=== PATIENT | male | born 1940 | race Caucasian/White ===

== ENCOUNTER 2023-01-19 08:10 | Day surgery (SDC) | payer MEDICARE, OTHER ==
[~2023-01-19] VITALS: Ht 160 cm; Wt 72.4 kg
[~2023-01-19 08:10] MED LIST: ASPI81TA26 PO; ATEN25TA PO; BIMA01SOL OS; BSS IRRIG/VANCO(10MG)/TOBRA(5MG)/EPINEPH(1:1000-0.5CC)500ML BAG-ORONLY IR ONE; CEFUROXIME 1MG/0.1ML INTRACAMERAL INJ As Ordered ONE; CLOP75TA2 PO; D 1010004 PO; DORZ2SOL5 OU; FOLI0.4T5 PO; LIDOCAINE 1% SDV 5ML VIAL As Ordered ONE; LIDOCAINE 3.5 % 1ML OPHTH TOPICAL GEL OU ONE; LOPI600T PO; NITR0.4S14 SL; OFLOXACIN 0.3 % (OCUFLOX) OPTH SOL 5ML OS ONE; OMEG12003 PO; PENT400T47 PO; PHENYLEPHRINE 10% OPHTH SOL 5ML OS PRN; POTA10CA60 PO; REFR0.5D8 OU; SIMV40TA20 PO; TIOT18INH INH; VITMTA PO
[2023-01-19] MEDS ORDERED: MIDAZOLAM INJ 2MG/2ML VIAL As Ordered ONE (08:34)
[2023-01-19] MEDS ORDERED: fentaNYL 100 MCG/2 ML INJECTION As Ordered ONE (08:35)
[2023-01-19] MEDS: PHENYLEPHRINE 2.5% OPHTH SOL 2ML OS SCH ×2 (08:44→08:45)
[2023-01-19] MEDS: TROPICAMIDE 1% OPHTH SOLN 15ML OS SCH ×2 (08:44→08:45)
[2023-01-19] MEDS: CYCLOPENTOLATE 1% OPHTH SOLN 2ML BTL OS SCH ×2 (08:44→08:45)
[2023-01-19 09:55] VITALS: BP 136/63; TEMP 96.9; O2SAT 98
== END 2023-01-19 16:26 | disposition home or self-care (01) ==
LOC: M SDC 08:10
PROVIDERS: ATTEND Ophthalmology
DX: H25.12 Age-related nuclear cataract, left eye (principal); H57.03 Miosis; H40.9 Unspecified glaucoma; Z95.5 Presence of coronary angioplasty implant and graft; I25.2 Old myocardial infarction; Z87.891 Personal history of nicotine dependence; Z79.899 Other long term (current) drug therapy
CPT/HCPCS: 66982; C1783; J0697; J2250; J3010; V2632

== ENCOUNTER → 2024-07-04 | Outpatient (REF) | payer MEDICARE, OTHER ==
[~2024-07-04] MED LIST changes: -BSS IRRIG/VANCO(10MG)/TOBRA(5MG)/EPINEPH(1:1000-0.5CC)500ML BAG-ORONLY IR ONE; -CEFUROXIME 1MG/0.1ML INTRACAMERAL INJ As Ordered ONE; -LIDOCAINE 1% SDV 5ML VIAL As Ordered ONE; -LIDOCAINE 3.5 % 1ML OPHTH TOPICAL GEL OU ONE; -OFLOXACIN 0.3 % (OCUFLOX) OPTH SOL 5ML OS ONE; -PHENYLEPHRINE 10% OPHTH SOL 5ML OS PRN; -POTA10CA60 PO; +POTA10CA70 PO
[2024-07-04 18:41] LABS: SOURCE, BODY FLUID GLUCOSE RT KNEE
[2024-07-04 18:59] LABS: SOURCE, BODY FLUID RT KNEE; SYNOVIAL FLUID COLOR YELLOW (COLORLESS)
[2024-07-04 19:11] LABS: CRYSTALS, BODY FLUID NONE SEEN (NONE SEEN); SOURCE, BODY FLUID CRYSTALS RT KNEE
== END ==
LOC: M LAB REF 17:25
PROVIDERS: ATTEND Physician Assistant
DX: M25.461 Effusion, right knee (principal); M17.11 Unilateral primary osteoarthritis, right knee